=== PATIENT | male | born 1985 | race Caucasian/White ===

== ENCOUNTER 2021-04-27 19:57 | Emergency (ER) | payer MEDICAID, SELFPAY ==
--- NOTE | ~2021-04-27 | XR_ITS ---
EXAMINATION: XR FINGER, LEFT CLINICAL INFORMATION: Laceration with glass. Concern for foreign body. COMPARISON: None TECHNIQUE: 3 views of the left ring finger. FINDINGS: There is a bandage around the distal ring finger. No radiopaque foreign body. No osseous abnormality. Bone and joint are normal. XR/XR finger LT min 2V IMPRESSION: No radiopaque foreign body of the fourth digit.
[2021-04-27 20:26] VITALS: BP 134/70; PULSE 77; RESP 16; TEMP 36.5; O2SAT 99
--- NOTE | 2021-04-27 23:02 | ED.WOUNDLAC ---
HPI - Wound/Laceration General Chief Complaint: Wound/Laceration Stated Complaint: finger lac Time Seen by Provider: 04/27/21 23:18 Source: patient Mode of arrival: ambulatory Limitations: no limitations History of Present Illness HPI narrative: 35-year-old male with no past medical history presents to ED for laceration to left ring finger caused by a glass on a fish tank. Patient states his tank was already broken and was a sharp edge any cut himself while trying to move objects. Patient denies any glass shattering or pieces going to finger. Patient states up-to-date with tetanus. Patient has complete range of motion of finger and bleeding has resolved. Patient states he clean wound and put a honey on laceration. Patient denies any other trauma. Related Data Previous Rx's Medication Instructions Recorded cephalexin 500 mg capsule 500 mg PO QID 7 Days #28 cap 04/27/21 Allergies Allergy/AdvReac Type Severity Reaction Status Date / Time No Known Allergies Allergy Verified 04/27/21 20:26 Review of Systems Review of Systems: Yes all other systems are reviewed and are negative Constitutional: Constitutional: Reports as per HPI and Reports no additional constitutional complaints Eyes: Eyes: Reports as per HPI and Reports no additional eye complaints ENT: Reports system reviewed and no additional complaints, except as documented and Reports as per HPI Cardiovascular: Cardiovascular: Reports as per HPI and Reports no additional cardiovascular complaints Respiratory: Respiratory: Reports as per HPI and Reports no additional respiratory complaints Gastrointestinal: Gastrointestinal: Reports as per HPI and Reports no additional gastrointestinal complaints Musculoskeletal: Musculoskeletal: Reports no additional musculoskeletal complaints and Reports as per HPI Comments: Left ring finger laceration Neurologic: Reports system reviewed and no additional complaints, except as documented and Reports as per HPI Psychiatric: Psychiatric: Reports no additional psychiatric complaints and Reports as per HPI [facility] Past Medical History Medical History (Updated 04/27/21 @ 23:15 by MAYELIN Arechiga) No known health problems Social History Social History Advance Directives: No Advance Directives Information Provided: Yes Physical Exam Vital Signs: Vital Signs: Last Vital Signs Temp 97.7 F 04/27/21 20:26 Pulse 77 04/27/21 20:26 Resp 16 04/27/21 20:26 BP 134/70 04/27/21 20:26 Pulse Ox 99 04/27/21 20:26 Body Mass Index 20.0 Const: General: cooperative, healthy appearing, comfortable, no acute distress, well developed, alert, awake and Physically active Orientation/consciousness: patient oriented x3 HENMT: Head: Yes normal to inspection, Yes No palpable skull fracture present, Yes normocephalic, Yes atraumatic and No abrasion Eyes: General: appearance normal, both eyes and all related structures Neck: Neck: Yes normal visual inspection, Yes full ROM, Yes no lymphadenopathy, Yes no meningeal signs, Yes trachea midline, Yes supple, No anterior neck swelling and No tender Chest: Chest palpation & inspection: normal inspection of the chest and normal palpation of entire chest wall Resp: Effort & Inspection: normal respiratory effort and not able to speak in complete sentences Auscultation: clear to auscultation bilaterally, no crackles, no rales, no rhonchi and no wheezes Cardio: Jugular venous distension: no JVD Heart sounds: S1 normal heart sound present and S2 normal heart sound present GI: Inspection: Yes normal to inspection and No abdominal wall ecchymosis Palpation (GI): Soft to palpation, not firm, nontender, no guarding and not rigid : General: No CVA tenderness and Yes no CVA tenderness Back/Spine/Pelvis: Back: no CVA tenderness, No CVA tenderness and No back tenderness Skin: General skin exam: no rashes or lesions noted and elasticity normal Neuro: General: patient oriented x3, gait normal, no meningeal signs and CN's II-XI intact bilaterally Cranial nerves: Yes CN's II-XII intact bilaterally Extrem: General: Yes normal to inspection and Yes full ROM Hand/finger images: 1. Very superficial laceration. Mild active bleeding. Patient has complete range of motion of finger. Capillary refills intact. Negative for tendon injury. Rest of Extremity normal. Motor/neuro/vascular exam intact. Psych: Appearance: grossly normal, well kempt and not disheveled Course Course Course Narrative: Superficial laceration. X-ray was ordered Reevaluation(s) Reevaluation #1: X-ray negative for fracture laceration. Wound cleaned with sterile saline Betadine iodine. Laceration closed with Dermabond. Patient will be discharged with Keflex Time: 23:14 MDM - Wound/Laceration MDM Narrative Medical decision making narrative: Finger laceration Discharge Plan Discharge Clinical Impression: Finger laceration Patient Disposition: Home, Self-Care Instructions: Finger Laceration (ED), Skin Adhesive Care (ED) Additional Instructions: Return to the ED immediately for any swelling, redness, pus discharge, foul odor, fever, chills, bluish black discoloration, inability to move finger, or any other concerning symptoms. Please follow-up with primary care provider Prescriptions: New cephalexin 500 mg capsule 500 mg PO QID 7 Days Qty: 28 RF: 0 Stand Alone Forms: Work/School Release Interventions: ED Discharge Assessment Last Done: 04/28/21 00:28 Discharge Date/Time: 04/28/21 00:30 Print Language: Greek
== END 2021-04-28 00:30 | disposition home or self-care (01) ==
LOC: HO.ED 23:24
PROVIDERS: Emergency Provider Student in an Organized Health Care Education/Training Program
DX: S61.215A Laceration without foreign body of left ring finger without damage to nail, initial encounter (principal); W25.XXXA Contact with sharp glass, initial encounter; Y93.9 Activity, unspecified; Y92.019 Unspecified place in single-family (private) house as the place of occurrence of the external cause; Y99.9 Unspecified external cause status
CPT/HCPCS: 12001; 73140; 99283; 99284

== ENCOUNTER 2023-07-25 18:26 | Emergency (ER) | payer SELFPAY ==
--- NOTE | ~2023-07-25 | US_ITS ---
EXAMINATION: US SCROTUM CLINICAL INFORMATION: Left testicular pain. COMPARISON: None available. TECHNIQUE: A sonogram of the scrotum was performed assessing gomez-scale appearance and color Doppler flow. Spectral Doppler analysis of the arterial and venous flow were performed in the testes bilaterally. FINDINGS: RIGHT: Right testicle measures 5.2 x 2.4 x 3.7 cm, volume 24 mL. No focal testicular parenchymal lesions are visualized. Spectral Doppler analysis of the arterial and venous flow is normal in the right testis. Normal right epididymis. No right hydrocele or varicocele is seen. LEFT: Left testicle measures 4 x 2.3 x 3.5 cm, volume 17 mL. No focal testicular parenchymal lesions are visualized. Spectral Doppler analysis of the arterial and venous flow is normal in the left testis. Left epididymal head is normal in size; the left epididymal body and tail are not well seen. No left hydrocele or varicocele is seen. US/US scrotum IMPRESSION: No significant sonographic abnormality with the caveat that the left epididymal body/tail were not well seen.
[2023-07-25 18:30] VITALS: BP 133/83; PULSE 88; RESP 18; TEMP 37; O2SAT 99; BMI 19.8
--- NOTE | 2023-07-25 18:32 | ED_ITS ---
HPI - General Adult General Chief complaint: General Medical Stated complaint: Lt side numb? stroke symptoms Time Seen by Provider: 07/25/23 21:23 Source: patient Mode of arrival: ambulatory Limitations: no limitations History of Present Illness HPI narrative: Patient otherwise healthy complaining of pain in left testicle area and the groin area for last 4 days of recent injury no penis discharge no urinary symptoms no fever no rash Related Data Previous Rx's Medication Instructions Recorded cephalexin 500 mg capsule 500 mg PO QID 7 days #28 caps 04/27/21 Allergies Allergy/AdvReac Type Severity Reaction Status Date / Time No Known Allergies Allergy Verified 07/25/23 18:30 Review of Systems 2 Review of Systems: Yes all other systems are reviewed and are negative [facility] Past Medical History Medical History No known health problems Social History Social History Advance Directives: No Advance Directives Information Provided: No Physical Exam ED Vital Signs: Vital Signs - 24 hr 07/25/23 18:30 07/25/23 21:31 Temperature 98.6 F 98.1 F Pulse Rate 88 71 Respiratory Rate 18 16 Blood Pressure 133/83 116/86 Pulse Oximetry 99 98 Oxygen Delivery Method Room Air Room Air BMI result Body Mass Index 19.8 Male genitals images: 2 1. Mild tenderness at the epididymis normal testicle no hernia no hydrocele no discharge from the penis skin is normal perineum is normal Course Course Course Narrative: This is a rapid medical exam: Additional HPI, ROS, PE not included below will be deferred to primary provider. Patient is a 38-year-old male presenting to the ED with months of pain, numbness/tingling to left side of scrotum. Reports he had dental work and was put on antibiotics which improved his symptoms for some time but then returned. Also complains of cloudy urine. Plan: UA, CT NG urine, will need full exam by primary provider Medical Decision Making Medical Decision Making [facility] Narrative: UTI/epididymitis epididymitis cyst/hydrocele/inguinal hernia Normal ultrasound Lab Data [facility] Lab Attestation statement: I reviewed the patient's lab results. Labs: Lab Results 07/25/23 Range/Units 21:33 Urine Color Yellow Urine Appearance Clear Urine pH 6.5 (5.0-9.0) Ur Specific [place] <= 1.005 (1.005-1.025) Urine Protein Negative (Neg-Trace) mg/dL Urine Glucose (UA) Negative (Negative) mg/dL Urine Ketones Negative (Negative) mg/dL Urine Blood Negative (Negative) Urine Nitrite Negative (Negative) Ur Leukocyte Esterase Negative (Negative) Independent Interpretation I performed an independent interpretation of an: Ultrasound Interpretation: Normal ultrasound Radiology Impression Discussion of test interpretation with radiology: I have reviewed the radiologist's reading. Discharge Plan Discharge Clinical Impression: Pain in scrotum Patient Disposition: Home, Self-Care Instructions: Scrotal Pain (ED) Additional Instructions: Your ultrasound of the scrotum is normal pain is likely musculoskeletal Take Tylenol/Motrin for pain as needed Prescriptions: No Action cephalexin 500 mg capsule 500 mg PO QID 7 Days Qty: 28 0RF Interventions: ED Discharge Assessment Last Done: 07/25/23 23:05 Discharge Date/Time: 07/25/23 23:05
[2023-07-25 21:31] VITALS: BP 116/86; PULSE 71; RESP 16; TEMP 36.7; O2SAT 98
[2023-07-25 21:42] LABS: Appearance Urine Clear; Color Urine Yellow; Glucose Urine UA Negative (Negative); Leukocyte Esterase Urine Negative (Negative); Nitrite Urine Negative (Negative); PH 6.5 (5.0-9.0); Specific Gravity - Urine <= 1.005 (1.005-1.025); Urine Blood Negative (Negative); Urine Ketones Negative (Negative); Urine Protein Negative (Neg-Trace)
[2023-07-26 11:51] LABS: CT PCR NOT DETECTED (Not Detect.); NG PCR NOT DETECTED (Not Detect.)
== END 2023-07-25 23:05 | disposition home or self-care (01) ==
PROVIDERS: Registered Nurse Emergency; Emergency Provider Internal Medicine
DX: N50.812 Left testicular pain (principal); R10.32 Left lower quadrant pain
CPT/HCPCS: 0353U; 76870; 81003; 99283; 99284